=== PATIENT | male | born 1945 | race Hispanic/Latino ===

== ENCOUNTER 2023-01-16 07:10 | Day surgery (SDC) | payer OTHER ==
[2023-01-14 13:05] VITALS: BP 162/95; PULSE 61; RESP 18
[~2023-01-16] VITALS: Ht 175.3 cm; Wt 105.3 kg
[2023-01-16] VITALS (9 sets, daily range): BP systolic 113–152; BP diastolic 67–89; PULSE 50–58; RESP 14–18
[~2023-01-16 07:10] MED LIST: BUSP10TA3 PO; ERGO500093 PO; FAMO40TA7 PO; FENO67CA14 PO; FINA5TAB41 PO; LISI20TA24 PO; MEMA5TAB42 PO; MIRT-93 PO; OMEP20CA12 PO; RIFA550T PO; ROSU20TA73 PO; TAMS-1 PO; VENL150C4 PO
[2023-01-16] MEDS ORDERED: 0.9%NACL 1000ML 1,000 ML IV ONE (07:50)
[2023-01-16] MEDS ORDERED: PROPOFOL 10 MG/ML 20ML VIAL IV ONE (09:50)
[2023-01-16] MEDS ORDERED: LIDOCAINE PF 100MG/5ML (2%) SYRINGE 5ML ONE (09:50)
== END 2023-01-16 11:25 | disposition home or self-care (01) ==
LOC: DAH 07:10 → ENDO 07:10
PROVIDERS: ATTEND Internal Medicine Gastroenterology
DX: Z09 Encounter for follow-up examination after completed treatment for conditions other than malignant neoplasm (principal); D12.2 Benign neoplasm of ascending colon; D12.3 Benign neoplasm of transverse colon; K57.30 Diverticulosis of large intestine without perforation or abscess without bleeding; K64.8 Other hemorrhoids; R93.41 Abnormal radiologic findings on diagnostic imaging of renal pelvis, ureter, or bladder; R93.2 Abnormal findings on diagnostic imaging of liver and biliary tract; K59.04 Chronic idiopathic constipation; K92.1 Melena; I10 Essential (primary) hypertension; K76.0 Fatty (change of) liver, not elsewhere classified; E66.9 Obesity, unspecified; E11.9 Type 2 diabetes mellitus without complications; E03.9 Hypothyroidism, unspecified; E78.00 Pure hypercholesterolemia, unspecified; F41.9 Anxiety disorder, unspecified; F32.A Depression, unspecified; Z90.49 Acquired absence of other specified parts of digestive tract; Z95.5 Presence of coronary angioplasty implant and graft; Z79.899 Other long term (current) drug therapy; Z68.34 Body mass index [BMI] 34.0-34.9, adult
CPT/HCPCS: 45385; J7030 ×2; J2001; J2704; A4620; A4215 ×2; A4223; A7002; A4222; A4221; A4663; A4216; A4606; J3490